=== PATIENT | female | born 1950 | race Caucasian/White ===

== ENCOUNTER → 2016-08-08 | Outpatient (CLI) | payer OTHER ==
[~2016-08-08] MED LIST: BENTYL10 MG PO; CALCIUM CITRAT1 EAC2 PO; CARAFATE ORAL SUSP PO; CELEXA20 MG PO; CLARITIN10 M3 PO; DESYREL100 MG PO; DITROPAN XL5 M1 PO; DULCOLAX5 M1 PO; ESTRACE1 M1 PO; FLONASE 0.05% N16 G1; GARLIC OIL1000 MG PO; IMITREX PO; IRON134 MG PO; LIPITOR20 MG PO; METAMUCIL FIBE3.4 GM PO; MIRTAZAPINE30 M1 PO; MULTI VITAMIN1 EACH PO; NATURAL VITA400 UNI2 PO; NEURONTIN800 MG PO; OMEPRAZOLE40 M1 PO; PROBIOTIC1 EAC1 PO; PROPRANOLOL PO; SEROQUEL XR150 MG PO; VITAMIN B12-FO1 EACH PO; VITAMIN C1000 M1 PO; ZINC CHELATE50 MG PO; ZOLOFT PO
== END | disposition home or self-care (01) ==
LOC: CSSDAY 09:30
DX: K50.90 Crohn's disease, unspecified, without complications (principal); Z79.899 Other long term (current) drug therapy
CPT/HCPCS: 96413; 96415; J1200; J1745

== ENCOUNTER → 2016-10-03 | Outpatient (CLI) | payer OTHER | END | disposition home or self-care (01) | LOC: CSSDAY 09:56 | DX: K50.90 Crohn's disease, unspecified, without complications (principal); Z79.899 Other long term (current) drug therapy | CPT/HCPCS: 96413; 96415; J1200; J1745 ==

== ENCOUNTER → 2016-11-08 | Outpatient (CLI) | payer OTHER ==
--- NOTE | ~2016-11-08 | BD1 ---
[facility] A Service of [facility] & [facility] RADIOLOGY TEXT RESULTS PATIENT: BAUTISTA MITCHELL LOCATION: [facility] : 54 UNIT #: [id number] AGE: [address]: Fransisco Farah MD SEX: F ORDER DR: [id number] [facility] [address] [place], [place] [address] [id number] O MR#: [id number] Acc #: [id number] NAME: BAUTISTA MITCHELL : 1950 SEX: F STUDY DATE/TIME: 11/08/2016 12:33 UNIT: [facility] ROOM: STUDY DESCRIPTION: BD Dexa Bone Dens 1+ Site Attending Physician: Fransisco Farah M.D. Referring Physician: Fransisco Farah M.D. Ordering Physician: Fransisco Farah M.D. Primary Care Physician: Nettie Vasquez M.D. MEDICAL IMAGING REPORT This report is preliminary unless electronic signature is present EXAM DXA scan 11/08/2016 HISTORY Status post menopause with history of hormone replacement therapy. Osteopenia. Hysterectomy in 1983. Arthritis. Fracture of right ankle in 2014. Family history of osteoporosis in mother. FINDINGS Bone mineral density in the lumbar spine from L1-L4 is 1.208 g/cm2 which is 1.5 standard deviations above the mean when compared to the young adult reference population which is within the range of normal. This is 3.2 standard deviations above the mean when compared to the age-matched population. Bone mineral density in the left femoral neck was 0.679 g/cm2 which is 1.5 standard deviations below the mean when compared to the young adult reference population which is characteristic of osteopenia. This is 0 standard deviations from mean when compared to the age-matched population. IMPRESSION Bone mineral density in the lumbar spine within the range of normal and within the left hip characteristic of osteopenia. Dictated by... Jad Scott M.D. THIS IS AN ELECTRONICALLY VERIFIED REPORT Jad Scott M.D. at 11/11/2016 7:34 AM KRT/aa TD: 11/09/2016 12:20 JOB #: [id number] [facility] A Service of [facility] & [facility] RADIOLOGY TEXT RESULTS PATIENT: BAUTISTA MITCHELL LOCATION: [facility] : 54 UNIT #: [id number] AGE: [address]: Fransisco Farah MD SEX: F ORDER DR: MEDICAL IMAGING REPORT Page 1 of 1 COPY
== END | disposition home or self-care (01) ==
LOC: CWCC 11:37
DX: M85.80 Other specified disorders of bone density and structure, unspecified site (principal); Z78.0 Asymptomatic menopausal state
CPT/HCPCS: 77080

== ENCOUNTER → 2016-11-28 | Outpatient (CLI) | payer OTHER | END | disposition home or self-care (01) | LOC: CSSDAY 10:00 | DX: K50.90 Crohn's disease, unspecified, without complications (principal) | CPT/HCPCS: 96413; 96415; J1200; J1745 ==